=== PATIENT | female | born 1945 | race Caucasian/White ===

== ENCOUNTER 2018-02-01 21:39 | Inpatient (IN) ==
--- NOTE | 2018-02-01 21:44 | Emergency Department Note ---
Disposition Clinical Impression: Fracture of humerus Disposition: Admitted As Inpatient Condition: Good General Adult HPI - General Stated complaint: fall left shoulder pain Time Seen by Provider: 02/01/18 21:42 - Related Data Home Medications Medication Instructions Recorded Confirmed Acetaminophen [Tylenol] 1,000 mg PO DAILY PRN 02/02/18 02/02/18 Aspirin [Aspirin EC] 1,000 mg PO HS 02/02/18 02/02/18 Glucosamine Sulfate Dipot Chlr 1 tab PO DAILY 02/02/18 02/02/18 [Glucosamine] Multivit-Min/FA/Lycopen/Lutein 1 tab PO DAILY 02/02/18 02/02/18 [Adults 50+ Multivitamin Tablet] Previous Rx's Medication Instructions Recorded Docusate [Colace] 100 mg PO BID #30 capsule 02/06/18 HYDROcodone/Acet 5/325 mg [[place] 1 tab PO Q4HR PRN 5 Days #20 tablet 02/06/18 5-325 mg] Allergies Allergy/AdvReac Type Severity Reaction Status Date / Time Penicillins [PCN] Allergy Rash Verified 02/01/18 21:48 Course Vital Signs Temperature 98.9 F 02/01/18 21:48 Pulse Rate 96 02/01/18 21:48 Respiratory Rate 14 02/01/18 21:48 Blood Pressure 163/76 02/01/18 21:48 O2 Sat by Pulse Oximetry 97 02/01/18 21:48 Temperature 97.6 F 02/06/18 07:30 Pulse Rate 88 02/06/18 07:30 Respiratory Rate 16 02/06/18 07:30 Blood Pressure 107/64 02/06/18 07:30 O2 Sat by Pulse Oximetry 97 02/06/18 08:20 Oxygen Delivery Oxygen Delivery Room Air Medical Decision Making - Lab Data Result diagrams: 02/05/18 01:22 02/05/18 12:41 Lab Results 02/02/18 02/02/18 02/02/18 Range/Units 00:15 00:15 00:15 WBC 14.0 H (4.3-11.1) K/mcL RBC 4.43 (3.82-4.97) M/mcL Hgb 12.8 (11.5-15.4) g/dL Hct 39.6 (35.3-44.9) % MCV 89.4 (83.0-100.0) fL MCH 28.9 (28.0-33.3) pg MCHC 32.3 (31.6-35.5) g/dL RDW 14.4 (11.5-14.5) % Plt Count 291 (140-400) K/mcL MPV 9.8 (9.4-12.4) fL Immature Gran % 0.6 (0-4) % Seg Neutrophils % 89.1 % Lymphocytes % 6.1 % Monocytes % 3.9 % Eosinophils % 0.1 % Basophils % 0.2 % Neutrophils # 12.4 H (1.6-8.9) K/mcL Lymphocytes # 0.9 (0.6-4.6) K/mcL Monocytes # 0.5 (0.0-1.3) K/mcL Eosinophils # 0.0 (0.0-0.6) K/mcL Basophils # 0.0 (0.0-0.2) K/mcL PT 13.0 H (9.4-12.1) Seconds INR 1.2 Sodium 138 (136-145) mEq/L Potassium 3.9 (3.5-5.1) mEq/L Chloride 103 (98-107) mEq/L Carbon Dioxide 25 (23-29) mEq/L BUN 17 (8-23) mg/dL Creatinine 0.66 (0.60-1.20) mg/dL Est GFR ( Amer) > 60 (> 60) Est GFR (Non-Af Amer) > 60 (> 60) BUN/Creatinine Ratio 26 (6-26) Glucose 190 H (70-105) mg/dL Calculated Osmolality 293 (280-300) Calcium 8.7 (8.6-10.3) mg/dL Attestation Statement - Attestation Attestation: I examined this patient and my medical decision-making was reviewed with the Resident Physician. I agree with the documented findings, disposition and treatment plan as described except to the extent set forth below. [id number] time provided Patient evaluated upon arrival by EMS after a mechanical fall. She complains of left upper extremity. Arm placed in a sling prehospital. Appears uncomfortable with attempts at range of motion
[2018-02-01] MEDS ORDERED: *HR* FentaNYL (PF) 100 MCG/2 ML VIAL IVP ONE (21:53)
--- NOTE | 2018-02-01 22:34 | Emergency Department Note ---
Disposition Clinical Impression: Fracture of humerus Qualifiers: Encounter type: initial encounter Fracture type: closed Fracture morphology: unspecified fracture morphology Fracture alignment: displaced Disposition: Admitted As Inpatient Condition: Good Referrals: Monique Tyler CNP [Primary Care Provider] - Forms: ED Satisfaction Letter Trauma HPI - General Chief Complaint: ED Extremity Injury, Upper Stated Complaint: fall left shoulder pain Time Seen by Provider: 02/01/18 21:42 Source: patient Limitations: no limitations - History of Present Illness HPI Narrative: Ms. Gregg is a 73 year old female who presented to [facility] ED on 02/01/18 via EMS after a mechanical fall. Patient reported that she fell backward while standing. Normally ambulates with 2 canes, which she was not using it at the time. She is complaining of significant pain in her left arm, which is currently wrapped in a sling. She also complains of midline cervical spine pain. Pain is worse with palpation. Patient currently has restricted ROM in the L arm; uncomfortable with attempt at motion. Denies any decreased strength , numbness, and tingling. Denies having any dizziness, syncope, or loss of consciousness. Denied any alcohol consumption prior to arrival. Admits to taking daily aspirin. No further complaints at this time. Pt Subjective Complaint: fall Onset (ago): Just [employer]PHOLSTER[employer] Loss of Consciousness: no Location - Extremities: Left: shoulder, arm Pain Scale: 5 Context: fall Associated symptoms: Denies: weakness, visual disturbances, dizziness - Related Data Allergies Allergy/AdvReac Type Severity Reaction Status Date / Time Penicillins [PCN] Allergy Rash Verified 02/01/18 21:48 Constitutional: Reports: as per HPI Eyes: Reports: as per HPI ENT ED: Reports: as per HPI Cardiovascular: Denies: chest pain, palpitations, dyspnea on exertion Respiratory: Denies: cough, dyspnea, wheezes Integumentary: Denies: rash, abrasion, lesions Neurological: Denies: weakness, numbness, paresthesias, confusion, vertigo Past Medical History - Past Medical History Medical history: Reports: no medical history Psychiatric history: Reports: no psych history - Social History Smoking Status: Never smoker Smokeless Tobacco Status: No Alcohol use: Reports: none Drug use: Reports: none Physical Exam - General Limitations: no limitations General appearance: alert - Head Head exam: atraumatic, normocephalic, normal inspection - ENT ENT exam: normal exam - Neck Neck exam: Present: tenderness - Chest Chest inspection: Absent: tenderness - Respiratory Respiratory exam: Present: normal lung sounds bilaterally - Cardiovascular Cardiovascular exam: Present: regular rate, normal rhythm, normal heart sounds - Abdominal Exam Abdominal exam: Present: soft, Non-Tender. Absent: tenderness, distention, guarding, rebound, rigidity - Expanded Upper Extremity Exam Shoulder exam: Present: tenderness, deformity Arm exam: Present: tenderness, swelling Hand exam: Present: normal inspection Neuromotor exam: Normal: wrist extension - Neurological Exam Neurological exam: Present: alert, oriented X3. Absent: motor sensory deficit - Psychiatric Psychiatric exam: Present: normal affect, normal mood - Skin Skin exam: Present: warm, dry, intact, normal color Course Course Narrative: Patient presents after mechanical backwards fall. Patient has significant pain in her L arm, which is in a sling. Patient does take aspirin at home. CT of the head and neck demonstrates no acute abnormalities. XR of the shoulder demonstrated the following: Complex fracture of the proximal humerus involving a comminuted vertical fracture through the lateral humeral head, transverse fracture through the neck of the humerus, an obliques fracture through the proximal humeral shaft with displacement, evident joint effusion. Orthopedics has been consulted. She was given a one time dose of fentanyl IV 100 mcg for pain control. Patient will be admitted to hospital. - Reevaluation(s) Reevaluation #1: Collar removed; C-spine cleared. Denies any pain, numbness, or tingling with ROM of the neck. Reevaluation #2: Contacted hospitalist Dr. Lopez; requests basic labs including BMP, CMP, PT/INR before admission. Vital Signs Temperature 98.9 F 02/01/18 21:48 Pulse Rate 96 02/01/18 21:48 Respiratory Rate 14 02/01/18 21:48 Blood Pressure 163/76 02/01/18 21:48 O2 Sat by Pulse Oximetry 97 02/01/18 21:48 Temperature 98.9 F 02/01/18 21:48 Pulse Rate 96 02/01/18 21:48 Respiratory Rate 14 02/01/18 21:48 Blood Pressure 163/76 02/01/18 21:48 O2 Sat by Pulse Oximetry 97 02/01/18 21:48 Oxygen Delivery Oxygen Delivery Room Air Trauma - Differential Diagnosis Blunt Trauma to: Likely: Extremity - Medical Records Medical records reviewed: Yes I reviewed the patient's medical records. - Lab Data Lab results reviewed: Yes I reviewed the patient's lab results. - Radiology Data Shoulder X-Ray 02/01/18 21:45 IMPRESSION: Complex fracture of the proximal humerus involving a comminuted vertical fracture through the lateral humeral head, transverse fracture through the neck of the humerus, an obliques fracture through the proximal humeral shaft with displacement. A joint effusion is evident. D/ / Cheyenne Garvey MD / Cheyenne Garvey MD Interpreting Provider: Cheyenne Garvey MD Cervical Spine CT 02/01/18 21:46 IMPRESSION: No acute abnormality of the cervical spine. Degenerative and degenerative disc changes. D/ / Cheyenne Garvey MD / Cheyenne Garvey MD Interpreting Provider: Cheyenne Garvey MD Head CT 02/01/18 21:46 IMPRESSION: No acute intracranial abnormality. Senescent changes including chronic microvascular change. Sclerosis of the right mastoid likely related to chronic inflammation. D/ / Cheyenne Garvey MD / Cheyenne Garvey MD Interpreting Provider: Cheyenne Garvey MD
[2018-02-02 00:27] LABS: Basophils % 0.2 %; Eosinophils % 0.1 %; Hematocrit 39.6 % (35.3-44.9); Hemoglobin 12.8 g/dL (11.5-15.4); Immature Granulocytes % 0.6 % (0-4); Lymphocytes # 0.9 K/mcL (0.6-4.6); Lymphocytes % 6.1 %; Mean Corpuscular HGB Conc 32.3 g/dL (31.6-35.5); Mean Corpuscular Hemoglobin 28.9 pg (28.0-33.3); Mean Corpuscular Volume 89.4 fL (83.0-100.0); Mean Platelet Volume 9.8 fL (9.4-12.4); Monocytes # 0.5 K/mcL (0.0-1.3); Monocytes % 3.9 %; Neutrophils # 12.4 K/mcL (1.6-8.9); Platelet Count 291 K/mcL (140-400); Red Blood Count 4.43 M/mcL (3.82-4.97); Red Cell Distribution Width 14.4 % (11.5-14.5); Segmented Neutrophils % 89.1 %
[2018-02-02 00:32] LABS: INR 1.2
[2018-02-02] MEDS ORDERED: SODIUM CHLORIDE 0.9% IVPB ONE (00:37)
[2018-02-02] MEDS ORDERED: KETAMINE IVPB ONE (00:37)
[2018-02-02 00:50] LABS: BUN/Creatinine Ratio 26 (6-26); Blood Urea Nitrogen 17 mg/dL (8-23); Calcium 8.7 mg/dL (8.6-10.3); Carbon Dioxide 25 mEq/L (23-29); Chloride 103 mEq/L (98-107); Glucose 190 mg/dL (70-105); Osmolality,Calculated 293 (280-300); Potassium 3.9 mEq/L (3.5-5.1); Sodium 138 mEq/L (136-145); eGFR For African Americans > 60 (> 60); eGFR For Non-African Americans > 60 (> 60)
[2018-02-02] MEDS ORDERED: *HR* OxyCODONE/APAP 5/325 TABLET PO ONE (01:33)
[2018-02-02] MEDS ORDERED: Naloxone 0.4 MG/ML INJ IVP PRN (02:01)
[2018-02-02] MEDS ORDERED: Acetaminophen 325 MG TABLET PO PRN (02:01)
[2018-02-02] MEDS ORDERED: *HR* OxyCODONE Immed Rel 5 MG TABLET PO PRN (02:01)
[2018-02-02] MEDS: 0.9 % Sodium Chloride w KCl 20 MEQ/1,000 ML MLS IVC SCH ×2 (02:40→16:08)
--- NOTE | 2018-02-02 03:39 | Internal Med History&Physical ---
Date of Encounter: 02/02/18 Time of Encounter: 01:50 Internal Medicine - H&P: HPI Chief complaint: s/p fall; left humerus fracture Admitted From: Emergency Dept Plans for Post Hospital Care: Home History of present illness: Ms. Gregg is a 73 year old female who presents to the ER tonight after having sustained a mechanical fall and injury to her left shoulder/left arm. She was walking around on her back porch/patio when she slipped, lost her balance, and fell, landing on her left shoulder and arm. She suffered extreme pain and was unable to get off the ground. She lay there for roughly 1 hour before help arrived. She lives alone and was calling out for help -- hoping a neighbor might ome to her rescue. Fortunately, one of her neighbors heard her cry for help and came to her rescue. EMS was called and she was brought to ER for evaluation. Imaging revealed a complex proximal humerus fracture. Orthopedics was consulted from the ER and patient was admitted to hospitalist service for further workup and care. Upon my assessment of the patient, she confirms and reiterates the above history. She denies any syncopal or near syncopal event. She denies any lightheadedness, dizziness, chest pain, shortness of breath, or any vertigo symptoms. She denies any chronic medical problems. Her only chronic condition is severe arthritis. She uses 2 canes to ambulate due to severe hip arthritis. She denies any exertional chest pain, exertional dyspnea, orthopnea, and/or PND. She states that debilitating arthritis runs in her family and she, too, suffers from severe arthritis. She denies any frequent history of falling. However, over the years, her arthritis has progressed to the point where she is having more and more difficulty ambulating and mobilizing. She feels that this led to her fall given her use of 2 canes and her loss of balance. Past Med Surg Social Fam HX - Past Medical History Attestation: Yes The following information was validated with the patient. Source: patient, old records reviewed Medical history: no medical history Psychiatric history: no psych history - Past Surgical History Surgical History: cholecystectomy - Social History Smoking Status: Never smoker Smokeless Tobacco Status: No Alcohol use: none Drug use: none Occupational status: retired Current living situation: Home - Independent Activity Level: Independent ambulation, Uses cane/walker Recent Out of Country Travel Within the Last 8 Weeks: No - Family History Mother Age: 93 Living Status: Still Living Hx Family Cardiac Disorders: Yes (afib, stents) Hx Family Respiratory Disorders: Yes (copd) Father Living Status: Age at : 85 Cause of : lung ca Hx Family Cancer: Yes Internal Medicine - H&P: Meds Acetaminophen [Tylenol] 1,000 mg PO DAILY 02/02/18 [History] Aspirin [Aspirin EC] 1,000 mg PO HS 02/02/18 [History] Glucosamine Sulfate Dipot Chlr [Glucosamine] 1 PO DAILY 02/02/18 [History] Multivit-Min/FA/Lycopen/Lutein [Adults 50+ Multivitamin Tablet] 1 PO DAILY 02/02 [History] 3 Allergy/AdvReac Type Severity Reaction Status Date / Time Penicillins [PCN] Allergy Rash Verified 02/01/18 21:48 - Constitutional Constitutional: falls (infrequent), no chills, no fever(s), no night sweats - EENT Eyes: no blurry vision, no change in vision Nose, mouth and throat: no nasal congestion, no sinus pain, no sinus pressure - Cardiovascular Cardiovascular ROS IM: no chest pain, no dyspnea, no dyspnea on exertion, no irregular heart rhythm, no lightheadedness, no palpitations - Respiratory Respiratory: no cough, no dyspnea, no dyspnea on exertion - Gastrointestinal Gastrointestinal: no abdominal pain, no diarrhea, no hematemesis, no hematochezia, no melena, no nausea, no vomiting - Genitourinary Genitourinary: no dysuria, no flank pain, no hematuria - Musculoskeletal Musculoskeletal ROS IM: arthralgias (severe pain in left arm/shoulder), no back pain - Integumentary Integumentary IM: no rash, no jaundice - Neurological Neurological ROS: no dizziness, no focal weakness, no frequent falls, no headache(s) - Psychiatric Psychiatric: no anxiety, no depression - Endocrine Endocrine IM: no polydipsia, no polyuria - Allergic/Immunologic Allergic/Immunologic: no wheezing, no GI upset with certain foods - Constitutional Vitals: Temp Pulse Resp BP Pulse Ox 98.2 F 108 16 147/84 97 02/02/18 02:40 02/02/18 02:40 02/02/18 02:40 02/02/18 02:40 02/02/18 02:40 General appearance: Present: cooperative, mild distress (due to pain in left arm ), A&O X 3, pleasant - Head Head exam: Present: normal inspection - Eye Eye exam: Present: EOMI, PERRL. Absent: scleral icterus - ENT ENT exam: Present: mucous membranes dry, normal exam, normal oropharynx - Neck Neck exam general surgery: Present: full ROM, supple. Absent: tenderness, nuchal rigidity, thyromegaly - Respiratory Respiratory exam: Present: CTAB. Absent: chest wall tenderness, rales, respiratory distress, rhonchi, wheezes - Cardiovascular Cardiovascular exam: Present: RRR, +S1, +S2. Absent: distant heart sounds, systolic murmur - GI/Abdominal GI/Abdominal exam: Present: soft. Absent: guarding, hepatomegaly, mass, splenomegaly, tenderness - Extremities Exam Extremities exam: Present: normal capillary refill, tenderness (severe pain left arm with movement; arm in sling), warm, radial pulses palpable and symmetrical. Absent: calf tenderness - Neurological Exam Neurological exam: Present: alert, CN II-XII intact, oriented X3, no focal deficits - Psychiatric Psychiatric exam: Present: normal affect, normal mood - Skin Skin exam: Present: dry, warm. Absent: rash Internal Med - H&P Results - Labs CBC & Chem 7: 02/02/18 00:15 02/02/18 00:15 - Diagnostic Studies Other Images Status: image reviewed by me (Left shoulder xray -- left humerus fracture) - Assessment and plan (1) Fracture of humerus Current Visit: Yes Status: Acute Assessment and plan: 1. Will start oral pain control and IVF. 2. Will keep npo for possible surgery today. 3. Dr. Vail consulted from ER. Will defer surgical intervention to Dr. Vail. 4. History suggest mechanical fall and no history of cardiac issues. Qualifiers: Encounter type: initial encounter Fracture type: closed Fracture morphology: unspecified fracture morphology Fracture alignment: displaced Laterality: left Qualified Code(s): S42.432A - Displaced fracture (avulsion) of lateral epicondyle of left humerus, initial encounter for closed fracture (2) DVT prophylaxis Current Visit: Yes Status: Acute Assessment and plan: 1. Heparin SQ.
[2018-02-02] MEDS: *HR* Heparin 5,000 UNIT/ML VIAL SQ SCH ×2 (03:41→16:08)
[2018-02-02] MEDS: *HR* HYDROcodone/Acet 5/325 mg TABLET PO PRN ×4 (04:45→19:58)
--- NOTE | 2018-02-02 09:39 | Event Note ---
Date of Encounter: 02/02/18 Time of Encounter: 09:00 Seen and assessed. Agree with plan per nightime hospitalist. F/U Ortho recs for humerus fracture
--- NOTE | 2018-02-02 15:16 | Orthopedic Consult Note ---
Date of Encounter: 02/02/18 Time of Encounter: 15:14 Assessment and Plan (1) Fracture of humerus Current Visit: Yes Status: Acute The diagnosis and treatment options were discussed with the patient and her family. She has a comminuted displaced proximal humerus fracture with impaction of the humeral head, displacement of the greater tuberosity, and metaphyseal involvement of the humeral shaft. The patient desires pain relief in her shoulder and the best function that she can obtain as she does use her arm regularly for ADLs. With the degree of displacement of the fracture, the head involvement and tuberosity displacement there is significant risk of malunion, AVN of the head and limitation of function with non-operative management or ORIF of the proximal humerus. She also has some underlying degenerative changes in the shoulder visible on her imaging as well. After discussing the pros and cons of treatment options including non-operative and operative intervention, the patient has elected to proceed with left reverse total shoulder arthroplasty with tuberosity and humeral shaft fixation at this time. The risks and benefits of the procedure were fully explained in detail, including but not limited to the risk of infection, neurovascular injury, continued pain or stiffness, failure of surgery, reinjury, or need for additional surgery, DVT, PE, general risks of anesthesia and loss of limb or life. No guarantees were given or implied and all questions were answered. The patient understands all the risks and does wish to proceed with written consent. Surgery will be scheduled in a timely manner. Qualifiers: Encounter type: initial encounter Fracture type: closed Fracture morphology: unspecified fracture morphology Fracture alignment: displaced Laterality: left Qualified Code(s): S42.432A - Displaced fracture (avulsion) of lateral epicondyle of left humerus, initial encounter for closed fracture History of Present Illness HPI: Ms. Gregg is a 73 year old female who presented to the emergency department last night after a mechanical fall at home. She was on her back porch and turned and slipped and fell onto her left shoulder. She had immediate pain in her left shoulder with inability to raise the arm. Denies pain in any other extremity. Denies any numbness or tingling radiating down the arm. Denies any chest pain, shortness of breath or blacking out prior to the fall. She had good use of her shoulder prior to this injury and did have some occasional aches and pains within the shoulder. Past Med Surg Social Fam HX - Past Medical History Medical history: no medical history Psychiatric history: no psych history - Past Surgical History Surgical History: cholecystectomy - Social History Smoking Status: Never smoker Smokeless Tobacco Status: No Alcohol use: none Drug use: none - Family History Mother Age: 93 Living Status: Still Living Hx Family Cardiac Disorders: Yes (afib, stents) Hx Family Respiratory Disorders: Yes (copd) Father Living Status: Age at : 85 Cause of : lung ca Hx Family Cancer: Yes Medications and Allergies Acetaminophen [Tylenol] 1,000 mg PO DAILY PRN 02/02/18 [History] Aspirin [Aspirin EC] 1,000 mg PO HS 02/02/18 [History] Glucosamine Sulfate Dipot Chlr [Glucosamine] 1 tab PO DAILY 02/02/18 [History] Multivit-Min/FA/Lycopen/Lutein [Adults 50+ Multivitamin Tablet] 1 tab PO DAILY 02/02/18 [History] 3 Allergy/AdvReac Type Severity Reaction Status Date / Time Penicillins [PCN] Allergy Rash Verified 02/01/18 21:48 All Systems Reviewed: The remainder of the systems were reviewed and are negative Physical Exam - Constitutional Vitals: Temp Pulse Resp BP Pulse Ox 98.5 F 86 16 144/87 96 02/02/18 09:50 02/02/18 09:50 02/02/18 09:50 02/02/18 09:50 02/02/18 09:50 Exam: Consult Exam: Constitutional -Vitals reviewed -The patient is well developed and well nourished. -Mood is pleasant. -The patient is well groomed. Psychiatric -The patient is fully alert and oriented x 3. Respiratory: -Respiratory effort normal Abdomen: -Soft abdomen -Non tender -Non distended: Left upper extremity: -The overlying skin is intact with ecchymosis. -Diffuse tenderness to palpation. -No significant pain with passive motion of the elbow, wrist, and fingers within the limits of the bed. Shoulder ROM deferred due to known fracture. -Able to make an "OK" sign, cross the index and long fingers, and extend the thumb. -Sensation grossly intact to light touch throughout the axillary, median, radial , and ulnar distributions. -Radial pulse is present; Fingers have good capillary refill. Right upper extremity: -No deformities. The overlying skin is intact. No obvious signs of acute trauma. -No tenderness to palpation throughout. -No significant pain with passive motion of the shoulder, elbow, wrist, and fingers within the limits of the bed. -Able to make an "OK" sign, cross the index and long fingers, and extend the thumb. -Sensation grossly intact to light touch throughout the median, radial, and ulnar distributions. -Radial pulse is present; Fingers have good capillary refill. Left lower extremity: -No deformities. The overlying skin is intact. No obvious signs of acute trauma. -No tenderness to palpation throughout. -No pain with passive motion of the hip, knee, ankle, and toes within the limits of the bed. -No pain with axial loading of the thigh. -Able to dorsiflex and plantarflex the ankle and toes. -Sensation is grossly intact to light touch throughout the sural, saphenous, superficial peroneal, and deep peroneal distributions. -Toes have good capillary refill. Right lower extremity: -No deformities. The overlying skin is intact. No obvious signs of acute trauma. -No tenderness to palpation throughout. -No pain with passive motion of the hip, knee, ankle, and toes within the limits of the bed. -No pain with axial loading of the thigh. -Able to dorsiflex and plantarflex the ankle and toes. -Sensation is grossly intact to light touch throughout the sural, saphenous, superficial peroneal, and deep peroneal distributions. -Toes have good capillary refill. Results - Labs Result Diagrams: 02/02/18 00:15 02/02/18 00:15 Labs: Abnormal lab results WBC 14.0 K/mcL (4.3-11.1) H 02/02/18 00:15 Neutrophils # 12.4 K/mcL (1.6-8.9) H 02/02/18 00:15 PT 13.0 Seconds (9.4-12.1) H 02/02/18 00:15 Glucose 190 mg/dL (70-105) H 02/02/18 00:15 All other labs normal. - Diagnostic results Shoulder x-ray: report reviewed, image reviewed (4 part proximal humerus fracture with displaced greater tuberosity, impacted humeral head and oblique fracture of shaft with metaphyseal extension) Shoulder CT: report reviewed, image reviewed (4 part proximal humerus fracture with displaced greater tuberosity, impacted humeral head and oblique fracture of shaft with metaphyseal extension. Degenerative changes in the glenoid) Consult Discharge Plan - Plan Referrals: Monique Tyler CNP [Primary Care Provider] -
[2018-02-03] MEDS: *HR* HYDROcodone/Acet 5/325 mg TABLET PO PRN ×2 (00:01→11:33)
[2018-02-03] MEDS: *HR* Heparin 5,000 UNIT/ML VIAL SQ SCH (05:57)
--- NOTE | 2018-02-03 13:22 | Internal Med Progress Note ---
Date of Encounter: 02/03/18 Time of Encounter: 13:00 - Assessment and plan (1) Fracture of humerus Current Visit: Yes Status: Acute Assessment and plan: Will start oral pain control and IVF. Plan for possible surgery today. Qualifiers: Encounter type: initial encounter Fracture type: closed Fracture morphology: unspecified fracture morphology Fracture alignment: displaced Laterality: left Qualified Code(s): S42.212A - Unspecified displaced fracture of surgical neck of left humerus, initial encounter for closed fracture (2) DVT prophylaxis Current Visit: Yes Status: Acute Assessment and plan: 1. Heparin SQ. - Time Spent With Patient Total time spent is greater than 50% in coordination of care (as documented) at patient's floor/unit and/or counseling patient: - Subjective Interval history: No acute events overnight - Constitutional Vitals: Temp Pulse Resp BP Pulse Ox 98.3 F 87 16 136/78 95 02/03/18 09:38 02/03/18 09:38 02/03/18 09:38 02/03/18 09:38 02/03/18 09:38 General appearance: Present: cooperative, mild distress (due to pain in left arm ), A&O X 3, pleasant - Head Head exam: Present: atraumatic, normocephalic - Eye Eye exam: Present: PERRL, conjuntiva pink, sclera anicteric Pupils: Present: PERRL - Neck Neck exam general surgery: Present: supple, trachea midline. Absent: lymphadenopathy - Respiratory Respiratory exam: Present: CTAB. Absent: accessory muscle use, rales, rhonchi, wheezes - Cardiovascular Cardiovascular exam: Present: RRR, +S1, +S2. Absent: diastolic murmur, gallop, rubs, systolic murmur - GI/Abdominal GI/Abdominal exam: Present: normal bowel sounds, soft, no peritoneal signs. Absent: distended, tenderness - Extremities Exam Extremities exam: Present: warm, radial pulses palpable and symmetrical. Absent : calf tenderness, cyanotic, pedal edema - Neurological Exam Neurological exam: Present: CN II-XII intact, oriented X3, no focal deficits. Absent: pronater drift, facial droop, speech deficit - Skin Skin exam: Present: dry, intact Internal Medicine: Result - Labs CBC & Chem 7: 02/02/18 00:15 02/02/18 00:15 - ABG Interpretation ABG results: PT/INR, D-dimer PT 13.0 Seconds (9.4-12.1) H 02/02/18 00:15 Consult Discharge Plan - Plan Referrals: Monique Tyler CNP [Primary Care Provider] -
[2018-02-03] MEDS ORDERED: Ondansetron 4 MG/2 ML VIAL ONE ×2 (13:42→14:32)
[2018-02-03] MEDS ORDERED: *HR* Succinylcholine 200 MG/10 ML VIAL IVP ONE ×2 (13:42→14:32)
[2018-02-03] MEDS ORDERED: Lidocaine -MPF 2% 2 ML VIAL ONE ×3 (13:42→19:01)
[2018-02-03] MEDS ORDERED: *HR* FentaNYL (PF) 100 MCG/2 ML VIAL ONE ×3 (13:42→17:05)
[2018-02-03] MEDS ORDERED: *HR* Propofol 200 MG/20 ML VIAL IVP ONE ×2 (13:42→14:33)
[2018-02-03] MEDS ORDERED: Lidocaine -MPF 4% 5 ML AMPUL ONE (13:44)
[2018-02-03] MEDS ORDERED: ROPIVACAINE HCL/PF 0.5% 30 ML VIAL ONE (14:26)
--- NOTE | 2018-02-03 14:26 | Anesthesia Evaluation PreOp ---
Date of Encounter: 02/03/18 Time of Encounter: 14:24 - Past History Planned Operation: L shoulder total shoulder Cardiac History: Denies any Significant Hx Pulmonary History: Denies Any Significant HX SHOE DYER History: Denies Any Significant HX Other Medical History: Other (BMI 50) Anesthesia History: No Prior Anesthetic Complications, Past Anesthesia ( cholecystectomy) Alcohol Use: none Drug use: none Medications and Allergies Acetaminophen [Tylenol] 1,000 mg PO DAILY PRN 02/02/18 [History] Aspirin [Aspirin EC] 1,000 mg PO HS 02/02/18 [History] Glucosamine Sulfate Dipot Chlr [Glucosamine] 1 tab PO DAILY 02/02/18 [History] Multivit-Min/FA/Lycopen/Lutein [Adults 50+ Multivitamin Tablet] 1 tab PO DAILY 02/02/18 [History] 3 Allergy/AdvReac Type Severity Reaction Status Date / Time Penicillins [PCN] Allergy Rash Verified 02/01/18 21:48 - Meds/Allergy Pre-op Review Medications Reviewed: Yes Allergies Reviewed: Yes Beta Blockers on Current Med List: No Anesthesia Results - Labs 02/02/18 00:15 02/02/18 00:15 Anesthesia Exam Vital Signs/O2 Sat, Most Current Temp Pulse Resp BP Pulse Ox 98.3 F 87 16 136/78 95 02/03/18 09:38 02/03/18 09:38 02/03/18 09:38 02/03/18 09:38 02/03/18 09:38 Height: 1.52m Weight: 117kg NPO (# of Hours): >8 - HEENT Pupil (Motor): Pupils equal, EOMI Mallampati: III Teeth: Normal Oral Opening: Greater than 3 - SHOE DYER LOC: Oriented SHOE DYER Motor: Normal RUE, Normal RLE, Normal LLE, Normal Face, Deficit LUE (humerus ) SHOE DYER Sensory: Normal: RUE, LUE, RLE, LLE, Face - Cardiac Rhythm: Regular - Pulmonary Breath Sounds: bilateral Clear Respiratory Effort: Symmetrical Anesthesia Assess/Plan ASA Score: 3 (BMI 50) Modified Zenaida Scale for Level of Consciousness: Cooperative, oriented, and tranquil Anesthetic Plan: General, Regional (L brachial plexus) Monitoring Plan: Standard Monitors Recovery Plan: PACU
[2018-02-03] MEDS ORDERED: Bupivacaine/Clonidine Syringe 1 EACH SYRINGE ONE (14:27)
[2018-02-03] MEDS ORDERED: Dexamethasone 4 MG/ML VIAL ONE (14:32)
[2018-02-03] MEDS ORDERED: *HR* Midazolam HCl 2 MG/2 ML VIAL ONE (14:32)
[2018-02-03] MEDS ORDERED: Ethanol\\Acetic Acid\\Na Ace\\Ben 1,000 ML IRRIG.SOLN IR ONE (14:45)
[2018-02-03] MEDS ORDERED: *HR* Etomidate 40 MG/20 ML VIAL IVP ONE (15:20)
--- NOTE | 2018-02-03 15:21 | Electrocardiograph Report ---
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
[2018-02-03] MEDS ORDERED: Clindamycin 600 MG/50 ML 0 MG/0 ML IV.SOLN IVPB ONE (15:33)
[2018-02-03] MEDS ORDERED: Vancomycin 1,000 MG VIAL ONE (15:33)
[2018-02-03] MEDS ORDERED: *HR* PHENYLEPHRINE 1,000 MCG/10 ML SYRINGE IVP ONE ×4 (15:34→18:29)
[2018-02-03] MEDS ORDERED: Clindamycin 900 MG/50 ML 900 MG/50 ML IV.SOLN IVPB ONE (15:35)
[2018-02-03] MEDS ORDERED: Tranexamic Acid 1,000 MG/10 ML VIAL ONE (15:55)
--- NOTE | 2018-02-03 16:00 | Anesthesia Procedures ---
Date of Encounter: 02/03/18 Time of Encounter: 14:51 Procedures: Anesthesia - Nerve Block Procedure Date: 02/03/18 Time: 14:51 Surgical Procedure: left reverse total shoulder replacement Checklist: Correct Patient Identifier, Correct procedure, History checked Correct side: Left Monitor Applied: BP, Pulse Oximetry Supplemental Oxygen via Nasal Cannula (L/min): 2 Sedation: Versed (mg): 1 Sedation: Fentanyl (mcg): 50 Indication: Post Op Analgesia Block Type: Supraclavicular Catheter placed: No Sterile Technique: Yes Ultrasound used: Yes Anatomy identified: Yes Visual spread of Local: Yes Blood on Needle Aspiration: No Smooth Injection of Local: Yes Pain with Injection of Local: No Prep: Chlorhexadine Needle: 22 x 50 mm Stimuplex Local: 0.25% Bupivicaine w/Clonidine 20 mcg/cc (10ml for SCP and 10ml for T2. ) , Ropivacaine (30ml 0.5% rop plain) Volume (cc): 50 Number of Attempts: 1 Complications: None/effective block Vitals: vss, block per request for surgeon.
[2018-02-03] MEDS ORDERED: MORPHINE SUL Oral CONC 10 MG/0.5 ML ORAL.SYG SL PRN (16:03)
[2018-02-03] MEDS ORDERED: *HR* Labetalol 20 MG/4 ML SYRINGE IVP PRN (16:03)
[2018-02-03] MEDS ORDERED: *HR* OxyCODONE Immed Rel 5 MG TABLET PO PRN (16:03)
[2018-02-03] MEDS ORDERED: *HR* Metoprolol 5 MG/5 ML VIAL IVP ONE (18:02)
--- NOTE | 2018-02-03 19:22 | Orthopedic Operative Note ---
Date of procedure: 02/03/18 Procedure: Procedure: Left reverse total shoulder arthroplasty with tuberosity repair and humeral shaft reduction and fixation Preoperative diagnosis: Left shoulder displaced four part proximal humerus fracture with head split and humeral shaft extension Postoperative diagnosis: Same Surgeon: Babak Vail MD Anesthesia: General with interscalene block EBL: 150 cc Complications: None Dispo: Stable to PACU Components used: Tornier Aequalis reverse fracture stem 7mm x 130 mm, 36+9 mm poly, 25x25 mm threaded post baseplate, 36x25 mm +4 lateralized glenosphere Indications: This is a 73-year-old female who had a mechanical fall onto her left shoulder and sustained a closed displaced four part left proximal humerus fracture with a head split and extension into the humeral shaft. Operative and non-operative treatment options were discussed with the patient, and due to the displacement of the fracture and the head split and the patients desire to obtain the best possible function of her shoulder she has elected for a left reverse shoulder replacement with tuberosity repair and fixation of the humeral shaft. The risks and benefits of the procedure were fully explained to the patient. These risks include, but are not limited to, the risk of infection, neurovascular injury, continued pain and stiffness of the shoulder, need for further surgery, DVT, PE, loss of limb and loss of life. The patient did understand all of these risks and wishes to proceed. Informed consent was then obtained. Operative procedure: The patient was brought back to the OR suite by the anesthesia staff. The patient was then placed supine on the operating table and all bony prominences were padded. The anesthesiologist then performed successful general anesthetic for the remainder of the case. The head, neck and airway were secured and protected by anesthesia. The bed was elevated about 30 degrees. The left upper extremity was then prepped and draped in the normal sterile orthopedic fashion. Preoperative antibiotics were then given prior to incision. A timeout was performed confirming the correct patient, site and side , procedure to be performed and any allergies. All were in agreement and we did proceed. A standard deltopectoral approach was performed. We dissected down through the skin coagulating any bleeders were encountered. The cephalic vein was then identified and taken laterally with the deltoid. Adhesions were cleared from underneath the deltoid and a brown retractor was placed. The interval between the deltoid and pectoralis was then developed and kolbel retractor was placed. A Darrach retractor was then placed under the acromion. The biceps tendon was exposed and identified, and then released proximally into the rotator interval. Soft tissue tenodesis of the remaining biceps was then performed. The lateral border of the conjoined tendon was then identified and the fracture of the lesser tuberosity, humeral head, and greater tuberosity fragments were identified. The lesser tuberosity fragment was off of the humeral shaft. This was retracted and tagged with #2 ethibond, exposing the humeral head. The humeral head was removed using a pointed reduction clamp. The head split was clearly visible and the remainder of the head was attached to the greater tuberosity. The remaining head removed from the greater tuberosity. A #2 ethibond was then used to tag the greater tuberosity and 4 looped Ethibond sutures were also placed around the greater tuberosity. The fracture of the humeral shaft was then exposed. There was an oblique fracture of the humeral shaft that extended past the insertion of the pectoralis. Hematoma was removed with combination of a curette and irrigation. After exposing the humeral shaft fracture was reduced with pointed reduction clamp. It was held in place and Arthrex fiber tape cerclage suture was passed around the humeral shaft. The cerclage suture was ratcheted down securely to the bone reducing the fracture nicely and holding it in place securely. This process was repeated 2 more times to fix the humeral shaft securely. Attention was then turned to the glenoid. The humerus was subluxed posteriorly and retractors were placed on the anterior and posterior aspects of the glenoid. A 360 degree release of the subscapularis was performed, and the axillary nerve was palpated and protected. Labral debridement was then performed. A central guide pin was placed in the appropriate position on the glenoid. The central drill hole was made and the glenoid was then reamed in accordance with the aequalis reverse system. The baseplate was screwed into place and the remaining peripheral drill holes were drilled and the appropriate length locking screws were placed. The glenosphere was then inserted and locked in to place with the locking screw. Attention was turned back to the humerus. The humerus was subluxed back anteriorly and the humerus was reamed and broached up to a size 7. A trial humeral stem and cup were placed. Trial reduction was then performed to make sure we could reduce the humerus. The size 7 fracture stem was then cemented in place, using the greater tuberosity as a guide to our humeral height. We retrialed the humeral cup and tray until we had adequate stability. We also ensured the greater and lesser tuberosity could be reduced to the stem. The final size 36+9 mm humeral cup was placed and the shoulder reduced. 2 of the looped Ethibond sutures were then passed around the prosthesis and to the Ethibond sutures were passed medial to the lesser tuberosity. Bone graft from the humeral head was placed on the undersurface of both tuberosities to aid in healing. The tuberosities were then held in place and tied back on to the humeral shaft and tied to each other as well in cerclage technique. The shoulder was then taken through ROM to ensure stability of the prosthesis and tuberosity repair. The wound was then copiously irrigated, the deltopectoral interval was tagged with 0 vicryl, and the incision was closed with 2-0 and 3-0 strata fix. Sterile dressing was placed, the arm was placed in a sling and the patient was taken to the PACU in stable condition. There were no complications during the case. Post op plan: The patient may come out of the sling for hand, wrist and elbow motion only. Hold shoulder motion until follow up. Was there an assistant unit forester present: No Estimated blood loss (cc): 150
[2018-02-03] MEDS ORDERED: Ipratropium/Albuterol Neb 3 ML ONE (19:33)
[2018-02-03] MEDS ORDERED: Ondansetron 4 MG/2 ML VIAL IVP PRN (19:58)
[2018-02-03] MEDS ORDERED: Ringers Solution, Lactated 1,000 ML IVC SCH (19:58)
[2018-02-03] MEDS ORDERED: Naloxone 0.4 MG/ML INJ IVP PRN (19:58)
[2018-02-03] MEDS ORDERED: MOM Conc 10 ML UD.LIQ PO PRN (19:58)
[2018-02-03] MEDS ORDERED: Acetaminophen 325 MG TABLET PO PRN (19:58)
[2018-02-03] MEDS ORDERED: Temazepam 15 MG CAPSULE PO PRN (19:58)
[2018-02-03] MEDS ORDERED: Sennosides 8.6 MG TABLET PO PRN (19:58)
[2018-02-03] MEDS: Clindamycin 900 MG/50 ML 900 MG/50 ML IV.SOLN IVPB SCH (23:23)
[2018-02-04 02:00] LABS: Hematocrit 29.6 % (35.3-44.9)
[2018-02-04 02:02] LABS: Hemoglobin 9.5 g/dL (11.5-15.4)
[2018-02-04] MEDS: *HR* OxyCODONE Immed Rel 5 MG TABLET PO PRN ×3 (04:59→18:16)
[2018-02-04] MEDS: *HR* Heparin 5,000 UNIT/ML VIAL SQ SCH ×2 (04:59→18:17)
[2018-02-04] MEDS: *HR* HYDROcodone/Acet 5/325 mg TABLET PO PRN ×3 (07:32→22:02)
[2018-02-04] MEDS: Clindamycin 900 MG/50 ML 900 MG/50 ML IV.SOLN IVPB SCH (07:32)
--- NOTE | 2018-02-04 08:13 | Orthopedics Progress Note ---
Date of Encounter: 02/04/18 Time of Encounter: 08:11 - Assessment and Plan (1) Fracture of humerus Current Visit: Yes Status: Acute Qualifiers: Encounter type: initial encounter Fracture type: closed Fracture morphology: unspecified fracture morphology Fracture alignment: displaced Laterality: left Qualified Code(s): S42.212A - Unspecified displaced fracture of surgical neck of left humerus, initial encounter for closed fracture Subjective Interval history: S: Doing ok first day post op. Block worn off, has pain in left shoulder. Denies fevers or chills. No CP, SOB. No nausea/vomiting. O: AFVSS Hgb 9.5 GEN: NAD, AAOx3 LUE: Dress c/d/i with no surrounding erythema SILT ax/m/r/u nerve distribution 2+ radial pulse ROM deferred A/P: POD#1 s/p L shoulder reverse TSA for fracture with humeral shaft and tuberosity fixation. -PT - no shoulder ROM, ok for hand,wrist, elbow ROM -PO pain control -Ambulate as able with PT, no WB through L shoulder -Discharge planning Objective Vital signs: Vital Signs Temp Pulse Resp BP Pulse Ox 02/04/18 06:48 98 F 87 16 124/78 99 02/04/18 04:52 98.3 F 97 16 110/70 98 02/03/18 23:00 99.5 F 98 16 98/65 98 02/03/18 22:00 99 F 100 16 95/62 92 02/03/18 21:30 98.3 F 95 16 108/70 95 02/03/18 21:00 98.3 F 97 16 92/57 98 02/03/18 20:45 97.9 F 97 16 100/58 96 02/03/18 20:30 97.9 F 102 17 100/64 95 02/03/18 19:58 97.8 F 99 16 105/71 97 02/03/18 19:48 97.5 F L 99 16 110/68 100 02/03/18 19:38 97.3 F L 96 16 121/73 100 02/03/18 19:28 97 F L 96 16 125/75 100 Intake and Output 02/03/18 02/04/18 02/04/18 23:59 07:59 15:59 Intake Total 50 / 50 50 / 50 Output Total 150 / 150 Balance -100 / -100 50 / 50 Intake: IV Fluids 50 / 50 Cleocin Premix 900 MG/50 ML 900 50 / 50 mg In 50 ml @ 50 mls/hr IVPB Q8HR [facility] Rx#:[id number] Oral 50 / 50 Output: Estimated Blood Loss 150 / 150 Other: # Urine Diapers 1 - Labs CBC & BMP: 02/04/18 01:27 02/02/18 00:15 Labs: Abnormal lab results WBC 14.0 K/mcL (4.3-11.1) H 02/02/18 00:15 Hgb 9.5 g/dL (11.5-15.4) L D 02/04/18 01:27 Hct 29.6 % (35.3-44.9) L 02/04/18 01:27 Neutrophils # 12.4 K/mcL (1.6-8.9) H 02/02/18 00:15 PT 13.0 Seconds (9.4-12.1) H 02/02/18 00:15 Glucose 190 mg/dL (70-105) H 02/02/18 00:15 - VTE Documentation of Mechanical Device: Intermittent pneumatic compression device Consult Discharge Plan - Plan Referrals: Jayson,Monique Hairston CURING ROOM SUPERVISOR [Primary Care Provider] -
--- NOTE | 2018-02-04 11:51 | Internal Med Progress Note ---
Date of Encounter: 02/04/18 Time of Encounter: 11:45 - Assessment and plan (1) Fracture of humerus Current Visit: Yes Status: Acute Assessment and plan: Will start oral pain control and IVF. s/p surgery for humerus fracture. Postpp day #1. Tolerated procedure well. Ortho following. WIll get PT assessment Qualifiers: Encounter type: initial encounter Fracture type: closed Fracture morphology: unspecified fracture morphology Fracture alignment: displaced Laterality: left Qualified Code(s): S42.212A - Unspecified displaced fracture of surgical neck of left humerus, initial encounter for closed fracture (2) DVT prophylaxis Current Visit: Yes Status: Acute Assessment and plan: 1. Heparin SQ. - Time Spent With Patient Total time spent is greater than 50% in coordination of care (as documented) at patient's floor/unit and/or counseling patient: - Subjective Interval history: No acute events overnight - Constitutional Vitals: Temp Pulse Resp BP Pulse Ox 98.3 F 84 16 128/74 98 02/04/18 10:32 02/04/18 10:32 02/04/18 10:32 02/04/18 10:32 02/04/18 10:32 General appearance: Present: cooperative, mild distress (due to pain in left arm ), A&O X 3, pleasant - Head Head exam: Present: atraumatic, normocephalic - Eye Eye exam: Present: PERRL, conjuntiva pink, sclera anicteric Pupils: Present: PERRL - Neck Neck exam general surgery: Present: supple, trachea midline. Absent: lymphadenopathy - Respiratory Respiratory exam: Present: CTAB. Absent: accessory muscle use, rales, rhonchi, wheezes - Cardiovascular Cardiovascular exam: Present: RRR, +S1, +S2. Absent: diastolic murmur, gallop, rubs, systolic murmur - GI/Abdominal GI/Abdominal exam: Present: normal bowel sounds, soft, no peritoneal signs. Absent: distended, tenderness - Extremities Exam Extremities exam: Present: warm, radial pulses palpable and symmetrical. Absent : calf tenderness, cyanotic, pedal edema - Neurological Exam Neurological exam: Present: CN II-XII intact, oriented X3, no focal deficits. Absent: pronater drift, facial droop, speech deficit - Skin Skin exam: Present: dry, intact Internal Medicine: Result - Labs CBC & Chem 7: 02/04/18 01:27 02/02/18 00:15 Labs: Short CBC 02/04/18 Range/Units 01:27 Hgb 9.5 L D (11.5-15.4) g/dL Hct 29.6 L (35.3-44.9) % - ABG Interpretation ABG results: PT/INR, D-dimer PT 13.0 Seconds (9.4-12.1) H 02/02/18 00:15 - Impressions Impressions Shoulder X-Ray 02/03/18 19:12 IMPRESSION: Intraprocedural fluoroscopic spot images as above. See separate procedure report for more information. D/ / Darek Churchill MD / Darek Churchill MD Interpreting Provider: Darek Churchill MD - VTE Documentation of Mechanical Device: Intermittent pneumatic compression device Consult Discharge Plan - Plan Referrals: Monique Tyler, FLAT SORTER PROCESSOR [Primary Care Provider] -
[2018-02-05 02:33] LABS: Hematocrit 26.6 % (35.3-44.9); Hemoglobin 8.7 g/dL (11.5-15.4)
[2018-02-05] MEDS: *HR* OxyCODONE Immed Rel 5 MG TABLET PO PRN ×3 (02:55→21:03)
[2018-02-05] MEDS: *HR* Heparin 5,000 UNIT/ML VIAL SQ SCH ×2 (05:55→16:17)
[2018-02-05] MEDS: *HR* HYDROcodone/Acet 5/325 mg TABLET PO PRN ×2 (05:55→14:27)
--- NOTE | 2018-02-05 10:55 | Orthopedics Progress Note ---
Date of Encounter: 02/05/18 Time of Encounter: 10:53 - Assessment and Plan (1) Fracture of humerus Current Visit: Yes Status: Acute Qualifiers: Encounter type: initial encounter Fracture type: closed Fracture morphology: unspecified fracture morphology Fracture alignment: displaced Laterality: left Qualified Code(s): S42.212A - Unspecified displaced fracture of surgical neck of left humerus, initial encounter for closed fracture Subjective Interval history: S: Pain much improved. Denies fevers or chills. No CP, SOB. No nausea/vomiting. O: AFVSS Hgb 8.7 GEN: NAD, AAOx3 LUE: Dress c/d/i with no surrounding erythema SILT ax/m/r/u nerve distribution 2+ radial pulse ROM deferred A/P: POD#2 s/p L shoulder reverse TSA for fracture with humeral shaft and tuberosity fixation. -PT - no shoulder ROM, ok for hand,wrist, elbow ROM -PO pain control -Ambulate as able with PT, no WB through L shoulder -Discharge planning Objective Vital signs: Vital Signs Temp Pulse Resp BP Pulse Ox 02/05/18 10:46 98.1 F 83 17 104/67 94 02/04/18 23:13 97.8 F 103 16 107/65 92 02/04/18 19:55 97.9 F 97 18 120/75 96 02/04/18 19:00 98 02/04/18 14:00 98.5 F 79 16 136/78 98 Intake and Output 02/04/18 02/05/18 02/05/18 23:59 07:59 15:59 Intake Total 550 / 550 360 / 360 Output Total 600 / 600 450 / 450 200 / 200 Balance -50 / -50 -450 / -450 160 / 160 Intake: IV Fluids 50 / 50 Cleocin Premix 900 MG/50 ML 900 50 / 50 mg In 50 ml @ 50 mls/hr IVPB Q8HR [facility] Rx#:[id number] Oral 500 / 500 360 / 360 Output: Urine 600 / 600 450 / 450 200 / 200 Other: Meal Breakfast Percent of Meal Consumed 100% - Labs CBC & BMP: 02/05/18 01:22 02/02/18 00:15 Labs: Abnormal lab results WBC 14.0 K/mcL (4.3-11.1) H 02/02/18 00:15 Hgb 8.7 g/dL (11.5-15.4) L 02/05/18 01:22 Hct 26.6 % (35.3-44.9) L 02/05/18 01:22 Neutrophils # 12.4 K/mcL (1.6-8.9) H 02/02/18 00:15 PT 13.0 Seconds (9.4-12.1) H 02/02/18 00:15 Glucose 190 mg/dL (70-105) H 02/02/18 00:15 - VTE Documentation of Mechanical Device: Intermittent pneumatic compression device Consult Discharge Plan - Plan Referrals: Jayson,Monique Hairston, CERTIFIED PROSTHETIST [Primary Care Provider] -
--- NOTE | 2018-02-05 12:27 | Internal Med Progress Note ---
Date of Encounter: 02/05/18 Time of Encounter: 12:25 - Assessment and plan (1) Fracture of humerus Current Visit: Yes Status: Acute Assessment and plan: Will start oral pain control and IVF. s/p surgery for humerus fracture. Postpp day #2. Tolerated procedure well. Ortho following. Pt following. Plan for discharge to SNF Qualifiers: Encounter type: initial encounter Fracture type: closed Fracture morphology: unspecified fracture morphology Fracture alignment: displaced Laterality: left Qualified Code(s): S42.212A - Unspecified displaced fracture of surgical neck of left humerus, initial encounter for closed fracture (2) DVT prophylaxis Current Visit: Yes Status: Acute Assessment and plan: Heparin SQ. - Time Spent With Patient Total time spent is greater than 50% in coordination of care (as documented) at patient's floor/unit and/or counseling patient: - Subjective Interval history: No acute events overnight - Constitutional Vitals: Temp Pulse Resp BP Pulse Ox 98.1 F 83 17 104/67 94 02/05/18 10:46 02/05/18 10:46 02/05/18 10:46 02/05/18 10:46 02/05/18 10:46 General appearance: Present: cooperative, mild distress (due to pain in left arm ), A&O X 3, pleasant - Head Head exam: Present: atraumatic, normocephalic - Eye Eye exam: Present: PERRL, conjuntiva pink, sclera anicteric Pupils: Present: PERRL - Neck Neck exam general surgery: Present: supple, trachea midline. Absent: lymphadenopathy - Respiratory Respiratory exam: Present: CTAB. Absent: accessory muscle use, rales, rhonchi, wheezes - Cardiovascular Cardiovascular exam: Present: RRR, +S1, +S2. Absent: diastolic murmur, gallop, rubs, systolic murmur - GI/Abdominal GI/Abdominal exam: Present: normal bowel sounds, soft, no peritoneal signs. Absent: distended, tenderness - Extremities Exam Extremities exam: Present: warm, radial pulses palpable and symmetrical. Absent : calf tenderness, cyanotic, pedal edema - Neurological Exam Neurological exam: Present: CN II-XII intact, oriented X3, no focal deficits. Absent: pronater drift, facial droop, speech deficit - Skin Skin exam: Present: dry, intact Internal Medicine: Result - Labs CBC & Chem 7: 02/05/18 01:22 02/05/18 12:41 Labs: Short CBC 02/05/18 Range/Units 01:22 Hgb 8.7 L (11.5-15.4) g/dL Hct 26.6 L (35.3-44.9) % - ABG Interpretation ABG results: PT/INR, D-dimer PT 13.0 Seconds (9.4-12.1) H 02/02/18 00:15 - VTE Documentation of Mechanical Device: Intermittent pneumatic compression device Consult Discharge Plan - Plan Referrals: Monique Tyler, GRAIN SCOOPER [Primary Care Provider] -
[2018-02-05 13:40] LABS: BUN/Creatinine Ratio 19 (6-26); Blood Urea Nitrogen 10 mg/dL (8-23); Calcium 8.4 mg/dL (8.6-10.3); Carbon Dioxide 27 mEq/L (23-29); Chloride 96 mEq/L (98-107); Glucose 120 mg/dL (70-105); Osmolality,Calculated 270 (280-300); Potassium 4.2 mEq/L (3.5-5.1); Sodium 130 mEq/L (136-145); eGFR For African Americans > 60 (> 60); eGFR For Non-African Americans > 60 (> 60)
[2018-02-06] MEDS: *HR* OxyCODONE Immed Rel 5 MG TABLET PO PRN ×2 (04:15→10:48)
[2018-02-06] MEDS: *HR* Heparin 5,000 UNIT/ML VIAL SQ SCH (06:09)
[2018-02-06 07:31] VITALS: BP 107/64
--- NOTE | 2018-02-06 09:26 | Discharge Summary ---
Orders not resulted at time of discharge: Pending orders 02/03/18 16:00 XR shoulder 1V LT [XR] Routine 02/03/18 20:49 Surgical Pathology [PTH] Routine Date of Encounter: 02/06/18 Time of Encounter: 09:20 - Discharge Diagnosis (1) Fracture of humerus Priority: Primary Status: Acute Assessment and Plan: 73 year old female presenting with humerus fracture s/p fall. Underwent s/p surgery for humerus fracture on 02/03. Tolerated procedure well with no complication. Continue pain control and outpatient followup with orthopedic surgery. Will discharge to SNF Qualifiers: Encounter type: initial encounter Fracture type: closed Fracture morphology: unspecified fracture morphology Fracture alignment: displaced Laterality: left Qualified Code(s): S42.212A - Unspecified displaced fracture of surgical neck of left humerus, initial encounter for closed fracture (2) DVT prophylaxis Priority: Secondary Status: Acute Assessment and Plan: Heparin SQ. Hospital course: Ms. Gregg is a 73 year old female - Time Spent with Patient Total time spent providing and/or coordinating discharge services: - Discharge Medications Prescriptions: HYDROcodone/Acet 5/325 mg [[place] 5-325 mg] 1 tab PO Q4HR PRN 5 Days #20 tablet PRN Reason: Moderate Pain Docusate [Colace] 100 mg PO BID #30 capsule Home Medications: Acetaminophen [Tylenol] 1,000 mg PO DAILY PRN 02/02/18 [History] Aspirin [Aspirin EC] 1,000 mg PO HS 02/02/18 [History] Glucosamine Sulfate Dipot Chlr [Glucosamine] 1 tab PO DAILY 02/02/18 [History] Multivit-Min/FA/Lycopen/Lutein [Adults 50+ Multivitamin Tablet] 1 tab PO DAILY 02/02/18 [History] Docusate [Colace] 100 mg PO BID #30 capsule 02/06/18 [Rx] HYDROcodone/Acet 5/325 mg [[place] 5-325 mg] 1 tab PO Q4HR PRN 5 Days #20 tablet 02/06/18 [Rx] Allergies/Adverse Reactions: 3 Allergy/AdvReac Type Severity Reaction Status Date / Time Penicillins [PCN] Allergy Rash Verified 02/01/18 21:48 Date of admission: 02/03/18 16:01 Primary care physician: Monique Tyler CNP Consults: 02/03/18 19:58 Consult to Occupational Therapy [CONS] Routine Comment: post shoulder surgery Reason for Consult: post shoulder surgery Does patient have active BEDREST order?: No Is patient medically & hemodynamically stable?: Yes Consult to Physical Therapy [CONS] Routine Comment: post shoulder surgery Reason for Consult: post shoulder surgery Does patient have active BEDREST order?: No Is patient medically & hemodynamically stable?: Yes RT Post Op Consult [CONS] Routine 02/04/18 10:35 Consult to Power Saw Mechanic [CONS] Routine Reason for SW Consult: DISCHARGE PLANNING 02/04/18 11:48 PT [Consult to Physical Therapy] [CONS] Routine Comment: Evaluate, develop and implement POC Reason for Consult: assistance with mobility Does patient have active BEDREST order?: No Is patient medically & hemodynamically stable?: Yes - Constitutional Vitals: Temp Pulse Resp BP Pulse Ox 97.6 F 88 16 107/64 97 02/06/18 07:30 02/06/18 07:30 02/06/18 07:30 02/06/18 07:30 02/06/18 08:20 General appearance: Present: cooperative, mild distress (due to pain in left arm ), A&O X 3, pleasant - Head Head exam: Present: atraumatic, normocephalic - Eye Eye exam: Present: PERRL, conjuntiva pink, sclera anicteric Pupils: Present: PERRL - Neck Neck exam general surgery: Present: supple, trachea midline. Absent: lymphadenopathy - Respiratory Respiratory exam: Present: CTAB. Absent: accessory muscle use, rales, rhonchi, wheezes - Cardiovascular Cardiovascular exam: Present: RRR, +S1, +S2. Absent: diastolic murmur, gallop, rubs, systolic murmur - GI/Abdominal GI/Abdominal exam: Present: normal bowel sounds, soft, no peritoneal signs. Absent: distended, tenderness - Extremities Exam Extremities exam: Present: warm, radial pulses palpable and symmetrical. Absent : calf tenderness, cyanotic, pedal edema Additional comments: left shoulder in sling - Neurological Exam Neurological exam: Present: CN II-XII intact, oriented X3, no focal deficits. Absent: pronater drift, facial droop, speech deficit - Skin Skin exam: Present: dry, intact - Patient Status Disposition: Transfer Inpatient Rehab Fac Condition: Good - Discharge Instructions Follow Up With: Monique Tyler CNP [Primary Care Provider] - Additional Instructions: Discharge Instructions: Total Shoulder Please call [facility] ([phone]), your Primary Care Physician, or report to the Emergency Room if you have any of the following symptoms: Nausea, vomiting, fever greater that 101.5, swelling, chest pain, shortness of breath, increased pain/redness/drainage/odor for your incision site, numbness/ tingling, or any other concerning symptoms. ACTIVITY: Always keep your arm in the sling. Do not raise your arm away from your body. Do not use your arm to help with getting in or out of bed. No weight bearing permitted. Only perform those exercises given to you by your therapist. Leave wedge in place. MEDICATIONS: Upon discharge resume your home medications. Take all the medications as prescribed. Take a stool softener if taking narcotic pain medications. Stool softeners are only effective if you drink enough fluids. Drink 6-8 glass of water or fluids a day, unless this is not allowed for another health problem. Despite using stool softeners, if you haven't had a bowel movement in 3 days, please switch to a gentle laxative. Gentle laxatives are sold over the counter. You should have a bowel movement within 24 hours, if not call the office. You will be discharged from the hospital with a prescription for pain medication. You are encouraged to decrease the use of narcotic pain medication as tolerated. Should you require a refill, please call the office. [facility] prescribes narcotic pain medication for only 4-6 weeks after surgery. If you require pain medication beyond this time period, you may be referred to your Primary Care Physician or to the Pain Clinic for further evaluation. Plan ahead for refills on pain medication as many narcotics either need to be picked up at the office or mailed. It is best to call 48-72 hours in advance of needing a prescription refill so you don't run out of medication. To help control the post-operative pain, you may take NSAIDs (Aleve,Advil, Motrin, Ibuprofen, Naprosyn) or Tylenol as prescribed on the bottle in addition to the pain medication. WOUND CARE: Leave the dressing on for 7-10 days. You may change the dressing if it becomes saturated greater than 50%. Do not get the dressing wet at anytime. Wash your hands with antibacterial soap, rinse and dry prior to any wound care. If you have shawn the visiting nurse or rehab facility can remove the stapes 10-14 days after surgery and place steri-strips across the wound. Leave the steri-strips in place until they fall off on their own. You may let water from the shower run on top of the steri-strips. If you do not have a visiting nurse or rehab facility, you will need to return to the office at 10-14 days for the shawn to be removed. If you have itching or redness around the dressing call the office. FOLLOW-UP: Please follow up with your surgeon in the orthopedic clinic, as scheduled - VTE Documentation of Mechanical Device: Intermittent pneumatic compression device
--- NOTE | 2018-02-06 09:30 | Physician Discharge Referral ---
- Diagnosis (1) Fracture of humerus Priority: Primary Status: Acute (2) DVT prophylaxis Status: Acute - Transfer Medications Prescriptions: HYDROcodone/Acet 5/325 mg [[place] 5-325 mg] 1 tab PO Q4HR PRN 5 Days #20 tablet PRN Reason: Moderate Pain Docusate [Colace] 100 mg PO BID #30 capsule Home Medications: Acetaminophen [Tylenol] 1,000 mg PO DAILY PRN 02/02/18 [History] Aspirin [Aspirin EC] 1,000 mg PO HS 02/02/18 [History] Glucosamine Sulfate Dipot Chlr [Glucosamine] 1 tab PO DAILY 02/02/18 [History] Multivit-Min/FA/Lycopen/Lutein [Adults 50+ Multivitamin Tablet] 1 tab PO DAILY 02/02/18 [History] Docusate [Colace] 100 mg PO BID #30 capsule 02/06/18 [Rx] HYDROcodone/Acet 5/325 mg [[place] 5-325 mg] 1 tab PO Q4HR PRN 5 Days #20 tablet 02/06/18 [Rx] Allergies/Adverse Reactions: 3 Allergy/AdvReac Type Severity Reaction Status Date / Time Penicillins [PCN] Allergy Rash Verified 02/01/18 21:48 - Respiratory Orders Smoking Cessation: Smoking cessation has been advised. For more information, call the [place] Tobacco Quit Line at 3-397-YBXGNOW. - Mobility Orders Ambulate - Rehabiliation Orders Rehab Orders: Evaluation for Physical Therapy CERTIFICATION: I certify that the transfer of the above named patient to an Extended Care Facility is necessary for the continuing treatment of the diagnosis listed. The above information is true and accurate reflection of patient's current condition. Confidential - Redisclosure prohibited without a patient's written consent.
--- NOTE | 2018-02-06 09:33 | Orthopedics Progress Note ---
Date of Encounter: 02/06/18 Time of Encounter: 09:32 - Assessment and Plan (1) Fracture of humerus Current Visit: Yes Status: Acute Qualifiers: Encounter type: initial encounter Fracture type: closed Fracture morphology: unspecified fracture morphology Fracture alignment: displaced Laterality: left Qualified Code(s): S42.212A - Unspecified displaced fracture of surgical neck of left humerus, initial encounter for closed fracture Subjective Interval history: S: Pain well controlled. No overnight issues.. Denies fevers or chills. No CP, SOB. No nausea/vomiting. O: AFVSS GEN: NAD, AAOx3 LUE: Dress c/d/i with no surrounding erythema SILT ax/m/r/u nerve distribution 2+ radial pulse ROM deferred A/P: POD#3 s/p L shoulder reverse TSA for fracture with humeral shaft and tuberosity fixation. -PT - no shoulder ROM, ok for hand,wrist, elbow ROM -PO pain control -Ambulate as able with PT, no WB through L shoulder -Discharge planning - ECF today Objective Vital signs: Vital Signs Temp Pulse Resp BP Pulse Ox 02/06/18 08:20 97 02/06/18 07:30 97.6 F 88 16 107/64 97 02/06/18 00:44 98.8 F 106 16 117/70 92 02/05/18 20:36 98.2 F 110 16 128/74 97 02/05/18 10:46 98.1 F 83 17 104/67 94 Intake and Output 02/05/18 02/06/18 02/06/18 23:59 07:59 15:59 Intake Total 240 / 240 Output Total 100 / 100 250 / 250 300 / 300 Balance -100 / -100 -250 / -250 -60 / -60 Intake: Oral 240 / 240 Output: Urine 100 / 100 250 / 250 300 / 300 Other: Meal Breakfast Percent of Meal Consumed 70% # Voids 1 - Labs CBC & BMP: 02/05/18 01:22 02/05/18 12:41 Labs: Abnormal lab results WBC 14.0 K/mcL (4.3-11.1) H 02/02/18 00:15 Hgb 8.7 g/dL (11.5-15.4) L 02/05/18 01:22 Hct 26.6 % (35.3-44.9) L 02/05/18 01:22 Neutrophils # 12.4 K/mcL (1.6-8.9) H 02/02/18 00:15 PT 13.0 Seconds (9.4-12.1) H 02/02/18 00:15 Sodium 130 mEq/L (136-145) L 02/05/18 12:41 Chloride 96 mEq/L (98-107) L 02/05/18 12:41 Creatinine 0.54 mg/dL (0.60-1.20) L 02/05/18 12:41 Glucose 120 mg/dL (70-105) H 02/05/18 12:41 Calculated Osmolality 270 (280-300) L 02/05/18 12:41 Calcium 8.4 mg/dL (8.6-10.3) L 02/05/18 12:41 - VTE Documentation of Mechanical Device: Intermittent pneumatic compression device Consult Discharge Plan - Plan Referrals: Jayson,Monique Hairston, LE[employer]ESSMAN [Primary Care Provider] - Prescriptions: HYDROcodone/Acet 5/325 mg [[place] 5-325 mg] 1 tab PO Q4HR PRN 5 Days #20 tablet PRN Reason: Moderate Pain Docusate [Colace] 100 mg PO BID #30 capsule
== END 2018-02-06 10:56 | DRG 483 ==
LOC: EMEROO 21:39 → 3NENU 21:39
PROVIDERS: ADMIT Internal Medicine; ATTEND Internal Medicine

== ENCOUNTER 2019-09-16 14:58 | Inpatient (IN) ==
[2019-09-16 15:41] LABS: Basophils # 0.1 K/mcL (0.0-0.2); Basophils % 0.4 %; Eosinophils # 0.1 K/mcL (0.0-0.6); Eosinophils % 0.5 %; Hemoglobin 14.5 g/dL (11.5-15.4); Immature Granulocytes % 0.9 % (0-4); Lymphocytes % 8.5 %; Mean Corpuscular Hemoglobin 28.9 pg (28.0-33.3); Mean Corpuscular Volume 87.8 fL (83.0-100.0); Mean Platelet Volume 10.3 fL (9.4-12.4); Monocytes # 0.6 K/mcL (0.0-1.3); Monocytes % 5.6 %; Neutrophils # 9.6 K/mcL (1.6-8.9); Platelet Count 326 K/mcL (140-400); Red Blood Count 5.01 M/mcL (3.82-4.97); Red Cell Distribution Width 14.3 % (11.5-14.5); Segmented Neutrophils % 84.1 %; White Blood Count 11.5 K/mcL (4.3-11.1)
[2019-09-16] MEDS ORDERED: Morphine Sulfate 2 MG/ML SYRINGE IVP ONE (15:42)
[2019-09-16] MEDS ORDERED: *HR* HYDROmorphone (PF) 1 MG/ML SYRINGE IVP ONE ×2 (15:54→17:11)
[2019-09-16 16:04] LABS: BUN/Creatinine Ratio 21 (6-26); Blood Urea Nitrogen 14 mg/dL (8-23); Calcium 9.7 mg/dL (8.6-10.3); Carbon Dioxide 25 mEq/L (23-29); Chloride 101 mEq/L (98-107); Glucose 122 mg/dL (70-105); Osmolality,Calculated 286 (280-300); Potassium 4.5 mEq/L (3.5-5.1); Sodium 137 mEq/L (136-145); eGFR For African Americans > 60 (> 60); eGFR For Non-African Americans > 60 (> 60)
[2019-09-16] MEDS ORDERED: *HR* OxyCODONE Immed Rel 5 MG TABLET PO PRN ×2 (17:29→17:32)
[2019-09-16] MEDS ORDERED: Acetaminophen 325 MG TABLET PO PRN (17:29)
[2019-09-16] MEDS ORDERED: Ondansetron 4 MG/2 ML VIAL IVP PRN (17:29)
[2019-09-16] MEDS ORDERED: Naloxone 0.4 MG/ML INJ IVP PRN (17:29)
[2019-09-16] MEDS: *HR* Heparin 5,000 UNIT/ML VIAL SQ SCH (21:17)
[2019-09-17] MEDS: *HR* Heparin 5,000 UNIT/ML VIAL SQ SCH (04:53)
[2019-09-17] MEDS: Artificial Tears SOLN 15 ML BOTTLE BOTH EYES SCH ×5 (05:52→20:21)
[2019-09-17] MEDS ORDERED: *HR* Meperidine 25 MG/ML SYRINGE IVP PRN (08:43)
[2019-09-17] MEDS ORDERED: Acetaminophen IV 1,000 MG/100 ML INFUS..BTL IVPB ONE (08:43)
[2019-09-17] MEDS ORDERED: *HR* FentaNYL (PF) 100 MCG/2 ML VIAL IVP PRN (08:43)
[2019-09-17] MEDS ORDERED: *HR* Midazolam HCl 2 MG/2 ML VIAL IVP PRN ×2 (08:43→14:53)
[2019-09-17] MEDS ORDERED: *HR* OxyCODONE Immed Rel 5 MG TABLET PO PRN (08:43)
[2019-09-17] MEDS ORDERED: *HR* Promethazine 25 MG/ML VIAL IVP PRN ×2 (08:43→14:53)
[2019-09-17 09:49] LABS: Basophils % 0.3 %; Eosinophils % 0.4 %; Immature Granulocytes % 0.4 % (0-4); Lymphocytes % 11.1 %; Mean Corpuscular HGB Conc 31.8 g/dL (31.6-35.5); Mean Corpuscular Hemoglobin 28.5 pg (28.0-33.3); Mean Corpuscular Volume 89.7 fL (83.0-100.0); Mean Platelet Volume 9.9 fL (9.4-12.4); Monocytes # 0.7 K/mcL (0.0-1.3); Monocytes % 7.5 %; Neutrophils # 7.3 K/mcL (1.6-8.9); Platelet Count 275 K/mcL (140-400); Red Blood Count 4.46 M/mcL (3.82-4.97); Red Cell Distribution Width 14.4 % (11.5-14.5); Segmented Neutrophils % 80.3 %; White Blood Count 9.2 K/mcL (4.3-11.1)
[2019-09-17 09:50] LABS: Hemoglobin 12.7 g/dL (11.5-15.4)
[2019-09-17 10:08] LABS: BUN/Creatinine Ratio 15 (6-26); Blood Urea Nitrogen 9 mg/dL (8-23); Calcium 8.7 mg/dL (8.6-10.3); Carbon Dioxide 26 mEq/L (23-29); Chloride 101 mEq/L (98-107); Glucose 128 mg/dL (70-105); Magnesium 1.9 mg/dL (1.6-2.6); Osmolality,Calculated 284 (280-300); Phosphorous 2.8 mg/dL (2.7-4.5); Potassium 3.9 mEq/L (3.5-5.1); Sodium 137 mEq/L (136-145); eGFR For African Americans > 60 (> 60); eGFR For Non-African Americans > 60 (> 60)
[2019-09-17] MEDS ORDERED: *HR* FentaNYL (PF) 100 MCG/2 ML VIAL ONE (10:25)
[2019-09-17] MEDS ORDERED: *HR* Propofol 200 MG/20 ML VIAL IVP ONE (10:25)
[2019-09-17] MEDS ORDERED: *HR* Succinylcholine 200 MG/10 ML VIAL IVP ONE (10:26)
[2019-09-17] MEDS ORDERED: *HR* Rocuronium Bromide 50 MG/5 ML VIAL ONE (10:27)
[2019-09-17] MEDS ORDERED: Lidocaine -MPF 2% 2 ML VIAL ONE (10:30)
[2019-09-17] MEDS ORDERED: Ondansetron 4 MG/2 ML VIAL ONE (10:30)
[2019-09-17] MEDS ORDERED: Lidocaine -MPF 4% 5 ML AMPUL ONE (10:30)
[2019-09-17] MEDS ORDERED: Dexamethasone 4 MG/ML VIAL ONE (10:30)
[2019-09-17] MEDS ORDERED: Clindamycin 900 MG/50 ML 900 MG/50 ML IV.SOLN IVPB ONE ×2 (11:12→11:19)
[2019-09-17] MEDS ORDERED: Ethanol\\Acetic Acid\\Na Ace\\Ben 1,000 ML IRRIG.SOLN IR ONE (11:12)
[2019-09-17] MEDS ORDERED: Tranexamic Acid 1,000 MG/10 ML VIAL ONE (11:28)
[2019-09-17] MEDS: *HR* HYDROmorphone (PF) 1 MG/ML SYRINGE IVP PRN ×2 (13:37→13:48)
[2019-09-17] MEDS ORDERED: Acetaminophen 325 MG TABLET PO PRN (14:53)
[2019-09-17] MEDS ORDERED: Naloxone 0.4 MG/ML INJ IVP PRN ×2 (14:53)
[2019-09-17] MEDS ORDERED: MOM Conc 10 ML UD.LIQ PO PRN (14:53)
[2019-09-17] MEDS ORDERED: Sennosides 8.6 MG TABLET PO PRN (14:53)
[2019-09-17] MEDS ORDERED: Ondansetron 4 MG/2 ML VIAL IVP PRN (14:53)
[2019-09-17] MEDS ORDERED: Temazepam 15 MG CAPSULE PO PRN (14:53)
[2019-09-17] MEDS ORDERED: HYDROcodone BIT/Homatropine 5 MG TABLET PO PRN (14:53)
[2019-09-17] MEDS: Ringers Solution, Lactated 1,000 ML IVC SCH (16:10)
[2019-09-17] MEDS: Ascorbic Acid 500 MG TABLET PO SCH (16:11)
[2019-09-17] MEDS: *HR* OxyCODONE Immed Rel 5 MG TABLET PO PRN (20:20)
[2019-09-17] MEDS: Clindamycin 900 MG/50 ML 900 MG/50 ML IV.SOLN IVPB SCH (20:22)
[2019-09-18] MEDS: Clindamycin 900 MG/50 ML 900 MG/50 ML IV.SOLN IVPB SCH (04:48)
[2019-09-18] MEDS: Ringers Solution, Lactated 1,000 ML IVC SCH (04:49)
[2019-09-18 05:53] LABS: Basophils % 0.2 %; Eosinophils % 0.2 %; Hematocrit 36.5 % (35.3-44.9); Hemoglobin 11.5 g/dL (11.5-15.4); Immature Granulocytes % 0.6 % (0-4); Lymphocytes # 0.9 K/mcL (0.6-4.6); Lymphocytes % 7.9 %; Mean Corpuscular HGB Conc 31.5 g/dL (31.6-35.5); Mean Corpuscular Hemoglobin 28.5 pg (28.0-33.3); Mean Corpuscular Volume 90.6 fL (83.0-100.0); Mean Platelet Volume 9.9 fL (9.4-12.4); Monocytes # 0.8 K/mcL (0.0-1.3); Monocytes % 7.2 %; Neutrophils # 9.8 K/mcL (1.6-8.9); Platelet Count 287 K/mcL (140-400); Red Blood Count 4.03 M/mcL (3.82-4.97); Red Cell Distribution Width 14.5 % (11.5-14.5); Segmented Neutrophils % 83.9 %; White Blood Count 11.7 K/mcL (4.3-11.1)
[2019-09-18 06:14] LABS: BUN/Creatinine Ratio 23 (6-26); Blood Urea Nitrogen 18 mg/dL (8-23); Calcium 8.5 mg/dL (8.6-10.3); Carbon Dioxide 26 mEq/L (23-29); Chloride 99 mEq/L (98-107); Glucose 156 mg/dL (70-105); Osmolality,Calculated 285 (280-300); Potassium 4.3 mEq/L (3.5-5.1); Sodium 135 mEq/L (136-145); eGFR For African Americans > 60 (> 60); eGFR For Non-African Americans > 60 (> 60)
[2019-09-18] MEDS: Ascorbic Acid 500 MG TABLET PO SCH ×2 (09:56→16:05)
[2019-09-18] MEDS: Artificial Tears SOLN 15 ML BOTTLE BOTH EYES SCH ×4 (09:56→21:10)
[2019-09-18] MEDS: Multivit/Ca/Min/Fe/FA 1 TAB TABLET PO SCH (09:57)
[2019-09-18] MEDS: *HR* OxyCODONE Immed Rel 5 MG TABLET PO PRN ×3 (10:01→22:08)
[2019-09-18] MEDS: Aspirin Enteric Coated 81 MG Tablet PO SCH (13:53)
[2019-09-19 02:24] LABS: Basophils % 0.4 %; Eosinophils # 0.2 K/mcL (0.0-0.6); Eosinophils % 2.5 %; Hemoglobin 11.7 g/dL (11.5-15.4); Immature Granulocytes % 0.8 % (0-4); Lymphocytes # 1.6 K/mcL (0.6-4.6); Lymphocytes % 17.1 %; Mean Corpuscular HGB Conc 32.5 g/dL (31.6-35.5); Mean Corpuscular Hemoglobin 28.9 pg (28.0-33.3); Mean Corpuscular Volume 88.9 fL (83.0-100.0); Monocytes # 0.8 K/mcL (0.0-1.3); Monocytes % 8.1 %; Neutrophils # 6.6 K/mcL (1.6-8.9); Platelet Count 294 K/mcL (140-400); Red Blood Count 4.05 M/mcL (3.82-4.97); Red Cell Distribution Width 14.5 % (11.5-14.5); Segmented Neutrophils % 71.1 %; White Blood Count 9.3 K/mcL (4.3-11.1)
[2019-09-19 02:43] LABS: BUN/Creatinine Ratio 25 (6-26); Blood Urea Nitrogen 18 mg/dL (8-23); Calcium 8.1 mg/dL (8.6-10.3); Carbon Dioxide 27 mEq/L (23-29); Chloride 101 mEq/L (98-107); Glucose 110 mg/dL (70-105); Osmolality,Calculated 281 (280-300); Sodium 134 mEq/L (136-145); eGFR For African Americans > 60 (> 60); eGFR For Non-African Americans > 60 (> 60)
[2019-09-19] MEDS: Ascorbic Acid 500 MG TABLET PO SCH ×2 (09:03→16:08)
[2019-09-19] MEDS: Multivit/Ca/Min/Fe/FA 1 TAB TABLET PO SCH (09:03)
[2019-09-19] MEDS: Aspirin Enteric Coated 81 MG Tablet PO SCH (09:04)
[2019-09-19] MEDS: Artificial Tears SOLN 15 ML BOTTLE BOTH EYES SCH ×2 (09:05→16:52)
[2019-09-19] MEDS: *HR* OxyCODONE Immed Rel 5 MG TABLET PO PRN ×2 (10:15→16:08)
[2019-09-19 17:31] VITALS: BP 131/60
== END 2019-09-19 19:52 | disposition home or self-care (01) | DRG 470 ==
LOC: 3NENU 14:58 → EMEROOARM 14:58 → 3NENU 19:34
PROVIDERS: ADMIT Internal Medicine; ATTEND Internal Medicine